=== PATIENT | male | born 1980 | race Caucasian/White ===

== ENCOUNTER 2016-07-05 18:49 | Emergency (ER) | payer BC ==
[2016-07-05] MEDS ORDERED: HYDROmorphone 1 MG/ML Syringe IVPUSH ONE (19:09)
[2016-07-05] MEDS ORDERED: Sodium Chloride 0.9% 1,000 ML IV SCH (19:15)
--- NOTE | 2016-07-05 19:23 | EDM.PDOC ---
ED HPI GI/ABDOMINAL - General Chief Complaint: Abdominal Pain Stated Complaint: ABD PAIN Time Seen by Provider: 07/05/16 19:05 Source: Reports: Patient History Limitations: Reports: No limitations - History of Present Illness INITIAL COMMENTS - FREE TEXT/NARRATIVE: 36-year-old male with a history of previous small bowel resection for bowel obstruction presents with 3 days of abdominal pain, much worse over the last 12 hours developing a bloated sensation in the abdomen and vomiting. He had a small bowel movement this morning, feels like he has to have more but is unable. No fevers or chills, no recent illness, no chest pain or shortness of breath. He presented to the walk-in clinic but was in so much discomfort they sent him to the emergency room. He has not had anything to eat or drink since 10 AM this morning because it causes increased pain. Timing/Duration: Reports: Day(s): (3 days but much worse over the past 12 hours) Location: generalized Quality: Reports: cramping, stabbing Severity: severe Worsens with: Reports: other (Seems to be worse to 3 hours after eating.) - Related Data Allergies/ADRs: Allergies Allergy/AdvReac Type Severity Reaction Status Date / Time amoxicillin Allergy Rash Verified 07/05/16 18:58 Penicillins Allergy Rash Verified 07/05/16 18:58 Home Meds: Home Meds Pantoprazole Sodium 40 mg PO DAILY 08/08/14 [History] Past Medical History Gastrointestinal History: Reports: Diverticulosis, GERD - Past Surgical History GI Surgical History: Reports: Colon Social & Family History - Tobacco Use Smoking Status *Q: Current Every Day Smoker Years of Tobacco use: 17 Packs/Tins Daily: 1 - Caffeine Use Caffeine Use: Reports: Coffee, Soda - Alcohol Use Days Per Week of Alcohol Use: 2 Number of Drinks Per Day: 3 Total Drinks Per Week: 6 - Recreational Drug Use Recreational Drug Use: No ED ROS GENERAL - Review of Systems Review Of Systems: See Below Constitutional: Denies: fever, chills HEENT: Reports: No symptoms Respiratory: Reports: no symptoms Cardiovascular: Reports: No symptoms GI/Abdominal: Reports: Abdominal pain, Nausea, Vomiting. Denies: Diarrhea : Reports: no symptoms Musculoskeletal: Reports: no symptoms Skin: Reports: no symptoms Neurological: Reports: no symptoms ED EXAM, GI/ABD - Physical Exam Exam: See Below Exam Limited By: No limitations General Appearance: alert, moderate distress Eyes: bilateral: normal appearance Respiratory/Chest: no respiratory distress, lungs clear Cardiovascular: regular rate, rhythm GI/Abdominal: tenderness, guarding, other (Unable to assess rebound as the patient is guarding so much) Neurological: alert, oriented, no motor/sensory deficits Psychiatric: normal affect, anxious Skin Exam: Warm, Dry Course - Vital Signs Last Recorded V/S: Last Vital Signs Temp 97.9 F 07/05/16 20:14 Pulse 70 07/05/16 20:14 Resp 15 07/05/16 20:14 BP 139/75 07/05/16 20:14 Pulse Ox 96 07/05/16 20:14 - Orders/Labs/Meds Orders: Active Orders 24 hr Category Date Time Status Abdomen Ltd [US] Stat Exams 07/05/16 20:35 Ordered Abdomen Pelvis w Cont [CT] Stat Exams 07/05/16 19:29 Taken Labs: Laboratory Tests 07/05/16 07/05/16 07/05/16 Range/Units 19:18 19:18 19:18 WBC 14.1 H (4.5-11.0) K/uL RBC 6.31 H (4.30-5.90) M/uL Hgb 17.8 H (12.0-15.0) g/dL Hct 51.3 (40.0-54.0) % MCV 81 (80-98) fL MCH 28 (27-31) pg MCHC 35 (32-36) % Plt Count 383 (150-400) K/uL Neut % (Auto) 65 (36-66) % Lymph % (Auto) 21 L (24-44) % Edmunds % (Auto) 11 H (2-6) % Eos % (Auto) 2 (2-4) % Baso % (Auto) 0 (0-1) % Sodium 142 (140-148) mmol/L Potassium 4.1 (3.6-5.2) mmol/L Chloride 104 (100-108) mmol/L Carbon Dioxide 27 (21-32) mmol/L Anion Gap 11.2 (5.0-14.0) mmol/L BUN 17 D (7-18) mg/dL Creatinine 1.5 H (0.8-1.3) mg/dL Est Cr Clr Drug Dosing 77.68 mL/min Estimated GFR (MDRD) 53 L (>60) Glucose 115 H (74-106) mg/dL Lactic Acid 1.9 (0.4-2.0) mmol/L Calcium 8.8 (8.5-10.1) mg/dL Total Bilirubin 1.1 H (0.2-1.0) mg/dL AST 15 (15-37) U/L ALT 27 (12-78) U/L Alkaline Phosphatase 44 L (46-116) U/L Total Protein 7.5 (6.4-8.2) g/dL Albumin 4.5 (3.4-5.0) g/dL Globulin 3.0 (2.3-3.5) g/dL Albumin/Globulin Ratio 1.5 (1.2-2.2) Amylase 70 (25-115) U/L Lipase 250 (73-393) U/L Meds: Medications Discontinued Medications Generic Name Dose Route Start Last Admin Trade Name Freq PRN Reason Stop Dose Admin Hydromorphone HCl 1 mg 07/05/16 19:09 07/05/16 19:18 Dilaudid IVPUSH 07/05/16 19:10 1 mg ONETIME ONE Administration Sodium Chloride 1,000 mls @ 500 mls/hr 07/05/16 19:15 07/05/16 19:16 Normal Saline IV 500 mls/hr ASDIRECTED YESI Administration Sodium Chloride 80 mls @ 3 mls/sec 07/05/16 19:45 07/05/16 19:52 Normal Saline IV 3 mls/sec ASDIRECTED YESI Administration Ceftriaxone Sodium 1 gm/ 50 mls @ 100 mls/hr 07/05/16 21:22 07/05/16 21:28 Sodium Chloride IV 07/05/16 21:51 100 mls/hr ONETIME ONE Administration Iopamidol 122 ml 07/05/16 19:45 07/05/16 19:52 Isovue-300 (61%) IV 122 ml . DIRECTED YESI Administration Sodium Chloride 10 ml 07/05/16 19:37 07/05/16 19:52 Saline Flush FLUSH 10 ml ASDIRECTED PRN Administration Keep Vein Open - Re-Assessments/Exams Free Text/Narrative Re-Assessment/Exam: 07/05/16 19:32 An IV was started, the patient was given 1 mg of Dilaudid and started on normal saline. CMP, CBC, lactic acid, amylase and lipase were obtained and the patient was sent back for an abdomen and pelvis CT with IV contrast. 07/05/16 20:40 CT showed pericholecystic fluid and gallbladder wall thickening. White count was 14.1 and bilirubin 1.1. The patient responded well to the IV Dilaudid and fluids. A gallbladder ultrasound was then ordered. 07/05/16 21:29 Ultrasound showed an open bile duct but some gallbladder wall thickening and pericystic fluid. 1 g Rocephin IV was given and the patient was discharged with 10 doses of hydrocodone to use when necessary, I discussed the case with Dr. Verdugo and he will recheck him at the clinic in the morning. Departure - Departure Time of Disposition: 21:59 Disposition: Home, Self-Care 01 Condition: good Clinical Impression: Cholecystitis Abdominal pain Qualifiers: Abdominal location: generalized Qualified Code(s): R10.84 - Generalized abdominal pain Instructions: Abdominal Pain, Adult, [id number], Cholecystitis, [id number] Referrals: PCP,None [Primary Care Provider] - Forms: ED Department Discharge Care Plan Goals: Advance diet slowly tonight and recheck with Dr. Verdugo tomorrow morning between 9 and 10 at the clinic. Use pain medications if pain recurs, or return to ER if needed. - My Orders Last 24 Hours: My Active Orders 07/05/16 19:29 Abdomen Pelvis w Cont [CT] Stat 07/05/16 20:35 Abdomen Ltd [US] Stat - Assessment/Plan Last 24 Hours: My Active Orders 07/05/16 19:29 Abdomen Pelvis w Cont [CT] Stat 07/05/16 20:35 Abdomen Ltd [US] Stat
[2016-07-05] MEDS ORDERED: Sodium Chloride 0.9% 10 ML Syringe FLUSH PRN (19:37)
[2016-07-05] MEDS ORDERED: Sodium Chloride 0.9% 80 ML IV SCH (19:45)
[2016-07-05] MEDS ORDERED: Iopamidol 612 MG/ML 150 ML Bottle IV SCH (19:45)
[2016-07-05 20:14] VITALS: BP 139/75
[2016-07-05] MEDS ORDERED: cefTRIAXone 1 GM in Sodium Chloride 0.9% 50 ML IV ONE (21:22)
== END 2016-07-05 21:59 | disposition home or self-care (01) ==
LOC: JP.ED 18:49
DX: K81.9 Cholecystitis, unspecified (principal); F17.210 Nicotine dependence, cigarettes, uncomplicated; Z88.0 Allergy status to penicillin; Z88.1 Allergy status to other antibiotic agents; Z79.899 Other long term (current) drug therapy
CPT/HCPCS: 36415; 74177; 76705; 80053; 82150; 83605; 83690; 85025; 96361; 96365; 96375; 99284; J0696; J1170; J7030; J7040; J7050

== ENCOUNTER 2016-07-16 05:51 | Day surgery (SDC) | payer BC ==
[2016-07-16] MEDS ORDERED: Lidocaine 1% with EPINEPHrine 1:100,000 50 ML MDV ONE (07:00)
[2016-07-16] MEDS ORDERED: Bupivacaine 0.5% 50 ML MDV ONE (07:00)
[2016-07-16] MEDS ORDERED: Sodium Chloride 0.9% 1,000 ML IV SCH (07:00)
[2016-07-16] MEDS ORDERED: Dexamethasone 4 MG/ML SDV ONE (07:22)
[2016-07-16] MEDS ORDERED: fentaNYL 250 MCG/5 ML SDV ONE (07:22)
[2016-07-16] MEDS ORDERED: Neostigmine Methylsulfate 1 MG/ML 5 ML Syringe ONE (07:22)
[2016-07-16] MEDS ORDERED: Ondansetron 4 MG/2 ML SDV ONE (07:22)
[2016-07-16] MEDS ORDERED: Rocuronium 50 MG/5 ML Vial ONE (07:22)
[2016-07-16] MEDS ORDERED: Propofol 200 MG/20 ML SDV ONE (07:22)
[2016-07-16] MEDS ORDERED: metroNIDAZOLE/Normal Saline 500 MG in Premix Bag 1 BAG IV ONE (07:30)
[2016-07-16] MEDS ORDERED: Ciprofloxacin in D5W 400 MG in Premix Bag 1 BAG IV ONE ×2 (08:00)
[2016-07-16] MEDS ORDERED: Acetaminophen/HYDROcodone 325-10 MG Tab PO PRN (08:39)
[2016-07-16] MEDS ORDERED: Benzocaine/Cetylpyridinium/Menthol Lozenge MUCMEM PRN (08:39)
[2016-07-16] MEDS ORDERED: Promethazine 25 MG/ML SDV IM PRN (08:39)
[2016-07-16] MEDS ORDERED: Zolpidem 5 MG Tab PO PRN (08:39)
[2016-07-16] MEDS ORDERED: Bisacodyl 5 MG Tab PO PRN (08:39)
[2016-07-16] MEDS ORDERED: fentaNYL 100 MCG/2 ML SDV IVPUSH PRN (08:39)
[2016-07-16] MEDS ORDERED: Acetaminophen 325 MG Tab PO PRN (08:39)
[2016-07-16] MEDS ORDERED: diphenhydrAMINE 50 MG/ML SDV IVPUSH PRN (08:39)
[2016-07-16] MEDS ORDERED: Docusate Sodium 100 MG Cap PO PRN (08:39)
[2016-07-16] MEDS ORDERED: hydrOXYzine HCl 50 MG/ML SDV IM PRN (08:41)
[2016-07-16 13:22] VITALS: BP 130/87
--- NOTE | 2016-07-19 12:27 | OR ---
DATE OF PROCEDURE: 07/16/2016 PROCEDURE: 1. Laparoscopic cholecystectomy. 2. Lysis of adhesions. PREOPERATIVE DIAGNOSIS: Laparoscopic cholecystectomy for cholecystitis. POSTOPERATIVE DIAGNOSIS: Laparoscopic cholecystectomy for cholecystitis. COMPLICATIONS: None. [employer]PONDER: None. ANESTHESIA: General/local. INDICATIONS: Risks, benefits, alternatives, and limitations, including, but not limited to infection, bleeding, injury to abdominal structures such as bowel, bladder, and blood vessels along with the possibility of open surgery in addition to common bile duct injury, cystic duct leaks were explained to the patient and wishes to proceed. PROCEDURE IN DETAIL: The patient was placed in a supine position. The patient's previous abdominal scarring constituted the typical midline supraumbilical entry point. Therefore, the initial entry point would be the superior 10 mm port location. This was approximately 2 cm from the ribs. A Veress needle was used to enter into the abdomen without abnormality. A drop test was also performed without abnormality. The abdomen was subsequently insufflated. This was then followed by an Optiview trocar. There was no evidence of injury noted during entry. Additional 10 and two 5 mm ports will be entered under direct visualization. The patient was noted to have adhesions from the abdominal wall. Lysis of adhesions was performed at the end this surgery using electrocautery. Of note, no energy source was used in proximity to the bowel. The gallbladder was retracted cephalad. The infundibulum was retracted inferolaterally. A "clear view" of the gallbladder will be obtained using blunt dissection. A single non-pulsatile structure was entering the gallbladder. Prior to transection on any blood vessels or structures, 2/3rd of the gallbladder had moved off to the gallbladder bed. A photo was taken of this. The artery and associated duct were clipped x3 and subsequently transected. The remaining 1/3rd of the gallbladder was removed off the gallbladder bed without difficulty. The gallbladder was then delivered using a bag. The abdomen was thoroughly irrigated with 1 L of irrigation. The air was removed. The wounds were closed with 3-0 Vicryl and 4-0 Vicryl interrupted running fashion after being thoroughly irrigated. Dermabond was applied. The patient tolerated the procedure well. Atif Verdugo MD /[id number]
== END 2016-07-16 13:17 | disposition home or self-care (01) ==
LOC: JP.SDS 05:51 → JP.MS 09:30 → JP.SDS 13:17
PROVIDERS: ATTEND Surgery
PROC: 0FT44ZZ Resection of Gallbladder, Percutaneous Endoscopic Approach (ICD-10-PCS; principal; 2016-07-16)
DX: K81.1 Chronic cholecystitis (principal); F17.200 Nicotine dependence, unspecified, uncomplicated
CPT/HCPCS: 36415; 47562; 80053; 85027; A9270; J0744; J1100; J2405; J2704; J3010; J3410; J7040; 88304